=== PATIENT | female | born 1950 | race Caucasian/White ===

== ENCOUNTER 2017-12-25 10:52 | Outpatient (CLI) | payer MEDICARE, BC ==
[2017-12-25 11:49] LABS: #Eosinphils 0.1 thou/uL (0.0-0.7); #Lymphocytes 2.1 thou/uL (1.20-3.40); #Monocytes 0.6 thou/uL (0.11-0.59); #Neutrophils 5.2 thou/uL (1.40-6.50); %Basophils 0.3 % (0.0-1.0); %Eosinophils 1.6 % (0.0-10.0); %Lymphocytes 25.7 % (21.0-51.0); %Monocytes 7.7 % (0.0-10.0); %Neutrophils 64.8 % (42.0-75.0); Mean Corpuscular Hemoglobin 29.9 pg (27.0-31.0); Mean Corpuscular Volume 90.6 fL (78.0-98.0); Mean Platelet Volume 8.2 fL (7.4-10.4); Platelet Count 303 thou/uL (130-400); RBC Distribution Width 11.2 % (11.5-14.5); Red Blood Cell (RBC) Count 4.69 mill/uL (4.20-5.40)
== END 2017-12-25 10:53 | disposition home or self-care (01) ==
LOC: LABBT 10:52
PROVIDERS: ATTEND Orthopaedic Surgery
DX: Z01.818 Encounter for other preprocedural examination (principal)
CPT/HCPCS: 85025; 93005; 93010

== ENCOUNTER 2017-12-26 06:06 | Day surgery (SDC) | payer MEDICARE, BC ==
--- NOTE | 2017-12-25 09:00 | HP ---
HISTORY OF PRESENT ILLNESS: The patient is a 67-year-old female with a several year history of inter mittent pain and a mass of her left wrist. There has been no specific injuries. She has pain with a ctivities which also interrupts her sleep. She has had persistent symptoms despite rest, restriction of activities, splinting and use of anti-inflammatory medications. PAST MEDICAL HISTORY: The patient is otherwise in good health. She has a history of hormone replace ment, thyroid replacement. CURRENT MEDICATIONS: Include Premarin and Synthroid. ALLERGIES: PENICILLIN. FAMILY HISTORY/SOCIAL HISTORY/REVIEW OF SYSTEMS: Otherwise unremarkable. PHYSICAL EXAMINATION: GENERAL: Reveals a healthy female. HEENT: Unremarkable. NECK: Supple. CHEST: Clear. HEART: Regular rhythm. ABDOMEN: Soft, nontender. PELVIC/RECTAL/BREAST: Exams are deferred. EXTREMITIES: Pertinent findings of the left wrist. There is a 1.5 x 1.5 cm cystic mass over the vol ar radial aspect of the wrist, which appears to be near the radial artery. There is tenderness over the mass. There is full range of motion. There is pain with extremes of motion. Neurovascular exam is intact. Allens testing reveals good collateral flow. There is no instability. Neurovascular ex am is intact. LABORATORY AND X-RAY FINDINGS: X-rays of the wrist are normal. IMPRESSION: Volar carpal ganglion, left wrist. PLAN: Surgical excision. The nature of the surgery, length of recovery, and potential complications such as infection, loss of motion, incomplete relief, neurovascular injury, recurrence, and need for additional treatment or repeat surgery have been discussed in detail.
[2017-12-25 11:19] VITALS: BMI 23.5
[2017-12-26] MEDS ORDERED: Bupivacaine PF 0.5% 30 ML VIAL ONE (06:34)
[2017-12-26] MEDS ORDERED: Clindamycin/D5W 900 mg/50 ml Premix Bag ONE (07:01)
[2017-12-26] MEDS ORDERED: Propofol 500 MG/50 ML VIAL ONE (07:04)
[2017-12-26] MEDS ORDERED: Fentanyl 100 MCG/2 ML VIAL ONE (07:04)
--- NOTE | 2017-12-26 09:08 | OP ---
DATE OF PROCEDURE: 12/26/2017 SURGEON: Yared Walker M.D. ANESTHESIA: General. PREOPERATIVE DIAGNOSIS: Volar carpal ganglion, left wrist. POSTOPERATIVE DIAGNOSIS: Volar carpal ganglion, left wrist. PROCEDURE: Excision volar carpal ganglion, left wrist. NARRATIVE REPORT: After satisfactory anesthesia was induced in supine position, the patient was prep ped and draped in routine manner. Left arm was elevated, exsanguinated with an Esmarch bandage, and tourniquet inflated to 200 mmHg. A 2.5 cm longitudinal incision was made along the volar radial aspe ct of the wrist, carried down to subcutaneous tissues. Bleeding points controlled with Bovie cautery . Deep fascia was incised. There was a small ganglion which was intimately associated with the radi al artery. This was dissected from the radial artery, one of the communicating veins was cut and tie d with 3-0 Vicryl suture. The distal end of the communicating vein was cauterized. The mass was the n excised in its entirety along with the wound with a volar wrist capsule. The wound was thoroughly irrigated. There appeared to be complete excision of the mass. The tourniquet was deflated after 20 minutes. There was still some bleeding from the distal end of the communicating vein and to the rad ial artery. The hand was elevated and the tourniquet reinflated and the distal end of the communicat ing veins were identified and cauterized with Bovie cautery. The tourniquet was then deflated after an additional 4 minutes for a total of 24 minutes. The hand promptly pinked up. There was no excess zully bleeding. The wound was irrigated and infiltrated with 10 mL of 0.5% plain Marcaine. Subcutaneo us tissue was closed with interrupted 3-0 Vicryl and the skin closed with interrupted 3-0 nylon. A s terile bulky compressive dressing was applied. The patient immobilized in a volar plaster splint. S he was awakened, taken to recovery room in stable condition. There were no apparent intraoperative c omplications. ESTIMATED BLOOD LOSS: Minimal.
[2017-12-26] MEDS ORDERED: Lidocaine 1% PF 5 ML VIAL ONE (11:20)
[2017-12-26] MEDS ORDERED: Dexamethasone 20 MG/5 ML VIAL ONE (11:20)
[2017-12-26] MEDS ORDERED: Ketorolac Tromethamine 30 MG/ML VIAL ONE (11:20)
[2017-12-26] MEDS ORDERED: PROPOFOL 200 MG/20 ML VIAL ONE (11:20)
[2017-12-26] MEDS ORDERED: Ondansetron HCl/PF 4 MG/2 ML Vial ONE (11:20)
== END 2017-12-26 09:35 | disposition home or self-care (01) ==
LOC: SDC 06:06
PROVIDERS: ATTEND Orthopaedic Surgery
PROC: 0LB60ZZ Excision of Left Lower Arm and Wrist Tendon, Open Approach (ICD-10-PCS; principal; 2017-12-26)
DX: M67.432 Ganglion, left wrist (principal); Z88.0 Allergy status to penicillin
CPT/HCPCS: 88304; J1100; J1885; J2001; J2405; J2704; J3010; J3490; S0020

== ENCOUNTER 2018-11-14 11:38 | Outpatient (CLI) | payer MEDICARE, BC ==
--- NOTE | 2018-11-14 14:41 | MMO ---
Bilateral MAMMO Bilat Screen [facility]. CLINICAL HISTORY: Patient is 68 years old and is seen for screening. The patient has the following family history of breast cancer: sister, malignant (generic). The patient has no personal history of cancer. The patient has a history of left Excisional Biopsy in 2009 - benign and right Excisional Biopsy in 1996 - Benign. VIEWS: The views performed were: bilateral craniocaudal with tomosynthesis and bilateral mediolateral oblique with tomosynthesis. FILMS COMPARED: The present examination has been compared to prior imaging studies performed at [facility] on 10/20/2014, 10/26/2015, 10/30/2016 and 11/12/2017. MAMMOGRAM FINDINGS: The breasts are heterogeneously dense, which could obscure a lesion on mammography. There are no suspicious masses, suspicious calcifications, or new areas of architectural distortion. IMPRESSION: THERE IS NO MAMMOGRAPHIC EVIDENCE OF MALIGNANCY. A ROUTINE FOLLOW-UP MAMMOGRAM IN 1 YEAR IS RECOMMENDED. THE RESULTS OF THIS EXAM WERE SENT TO THE PATIENT. ACR BI-RADS Category 1 - Negative MAMMOGRAPHY NOTE: 1. A negative mammogram report should not delay a biopsy if a dominant of clinically suspicious mass is present. 2. Approximately 10% to 15% of breast cancers are not detected by mammography. 3. Adenosis and dense breasts may obscure an underlying neoplasm. Reported by: MERRICK CLAYTON MD Electonically Signed: [id number]
== END 2018-11-14 11:39 | disposition home or self-care (01) ==
LOC: BICMAMMO 11:38
PROVIDERS: ATTEND Internal Medicine
DX: Z12.31 Encounter for screening mammogram for malignant neoplasm of breast (principal); Z80.3 Family history of malignant neoplasm of breast; Z91.89 Other specified personal risk factors, not elsewhere classified
CPT/HCPCS: 77063; 77067

== ENCOUNTER 2019-09-24 11:07 | Emergency (ER) | payer MEDICARE, BC ==
[2019-09-24] MEDS ORDERED: predniSONE 20 MG TAB ONE (11:37)
[2019-09-24] MEDS ORDERED: diphenhydrAMINE 25 MG CAP ONE (11:41)
[2019-09-24] MEDS ORDERED: Famotidine 20 MG TAB PO SCH (11:45)
== END 2019-09-24 12:51 | disposition home or self-care (01) ==
LOC: ERS 11:07
DX: T63.481A Toxic effect of venom of other arthropod, accidental (unintentional), initial encounter (principal); I10 Essential (primary) hypertension; E03.9 Hypothyroidism, unspecified; Z79.899 Other long term (current) drug therapy
CPT/HCPCS: 96361; 96374; J7512; Q0163

== ENCOUNTER 2020-05-28 08:58 | Outpatient (CLI) | payer MEDICARE, BC | END 2020-05-28 08:59 | disposition home or self-care (01) | LOC: BICMRI 08:58 | PROVIDERS: ATTEND Orthopaedic Surgery | DX: M75.41 Impingement syndrome of right shoulder (principal) ==

== ENCOUNTER 2020-11-19 09:04 | Outpatient (CLI) | payer MEDICARE, BC | END 2020-11-19 09:05 | disposition home or self-care (01) | LOC: BICMAMMO 09:04 | PROVIDERS: ATTEND Surgery | DX: Z12.31 Encounter for screening mammogram for malignant neoplasm of breast (principal); Z91.89 Other specified personal risk factors, not elsewhere classified | CPT/HCPCS: 77063; 77067 ==

== ENCOUNTER 2024-02-05 13:06 | Outpatient (CLI) | payer MEDICARE, BC ==
[2024-02-05 14:44] LABS: #Basophils 0.05 10x3/uL (0.0-0.2); %Basophils 0.6 % (0.0-1.0); %Eosinophils 1.1 % (0.0-10.0); %Lymphocytes 23.4 % (21.0-51.0); %Monocytes 8.6 % (0.0-10.0); %Neutrophils 66.1 % (42.0-75.0); Hemoglobin 13.2 g/dL (12.0-16.0); Mean Corpuscular HGB CONC 33.8 g/dL (32.0-36.0); Mean Corpuscular Hemoglobin 30.3 pg (27.0-31.0); Mean Corpuscular Volume 89.4 fL (78.0-98.0); Mean Platelet Volume 11.2 fL (7.4-10.4); Platelet Count 309 10x3/uL (130-400); Red Blood Cell (RBC) Count 4.36 mill/uL (4.20-5.40)
== END 2024-02-05 13:07 | disposition home or self-care (01) ==
LOC: LABBT 13:06
PROVIDERS: ATTEND Orthopaedic Surgery Hand Surgery
DX: Z01.818 Encounter for other preprocedural examination (principal); G56.03 Carpal tunnel syndrome, bilateral upper limbs
CPT/HCPCS: 85025

== ENCOUNTER 2024-02-06 13:13 | Outpatient (CLI) | payer MEDICARE, BC | END 2024-02-06 13:14 | disposition home or self-care (01) | LOC: BICMAMMO 13:13 | PROVIDERS: ATTEND Surgery | DX: N60.19 Diffuse cystic mastopathy of unspecified breast (principal); R92.1 Mammographic calcification found on diagnostic imaging of breast; R92.323 Mammographic fibroglandular density, bilateral breasts | CPT/HCPCS: 77066; G0279 ==

== ENCOUNTER 2024-02-08 06:02 | Day surgery (SDC) | payer MEDICARE, BC ==
[2024-02-05 13:18] VITALS: BMI 24.9
[2024-02-08] MEDS ORDERED: Bacitracin Zinc Ointment 30 gm TUBE ONE (06:07)
[2024-02-08] MEDS ORDERED: Bupivacaine PF 0.5% 30 ML VIAL ONE (06:08)
[2024-02-08] MEDS ORDERED: LevoFLOXacin D5W 500 mg (100 mL) BAG ONE (06:40)
[2024-02-08] MEDS ORDERED: Clindamycin/D5W 900 mg/50 ml Premix Bag ONE (06:55)
[2024-02-08] MEDS ORDERED: Propofol 500 MG/50 ML VIAL ONE (07:03)
[2024-02-08] MEDS ORDERED: Propofol 1,000 MG/100 ML VIAL IV ONE (07:03)
[2024-02-08] MEDS ORDERED: Ketamine In 0.9 % NaCl 50 MG/5 ML SYRINGE ONE (07:05)
[2024-02-08] MEDS ORDERED: fentaNYL PF 100 MCG/2 ML SYRINGE ONE (07:05)
[2024-02-08] MEDS ORDERED: Glycopyrrolate 0.2 MG/ML 5 ML SYRINGE ONE (07:17)
[2024-02-08] MEDS ORDERED: PHENYLEPHRINE-NS 100 MCG/ML 10 ML SYRINGE ONE (07:40)
[2024-02-08] MEDS ORDERED: Ketorolac Tromethamine 30 MG (1 mL) VIAL ONE (08:00)
== END 2024-02-08 08:55 | disposition home or self-care (01) ==
LOC: SDC 06:02
PROVIDERS: ATTEND Orthopaedic Surgery Hand Surgery
PROC: 01N50ZZ Release Median Nerve, Open Approach (ICD-10-PCS; principal; 2024-02-08)
DX: G56.03 Carpal tunnel syndrome, bilateral upper limbs (principal); I10 Essential (primary) hypertension; E03.9 Hypothyroidism, unspecified; Z90.710 Acquired absence of both cervix and uterus; Z88.0 Allergy status to penicillin; Z79.890 Hormone replacement therapy; Z79.899 Other long term (current) drug therapy
CPT/HCPCS: 64721; A6223; J0665; J1885; J1956; J2704 ×2; J3490 ×2

== ENCOUNTER 2025-02-06 13:04 | Outpatient (CLI) | payer MEDICARE, BC | END 2025-02-06 13:05 | disposition home or self-care (01) | LOC: BICMAMMO 13:04 | PROVIDERS: ATTEND Internal Medicine | DX: Z12.31 Encounter for screening mammogram for malignant neoplasm of breast (principal); Z80.3 Family history of malignant neoplasm of breast; Z91.89 Other specified personal risk factors, not elsewhere classified; Z98.890 Other specified postprocedural states | CPT/HCPCS: 77063; 77067 ==